=== PATIENT | male | born 1945 | race Caucasian/White ===

== ENCOUNTER 2017-02-16 05:40 | Emergency (ER) | payer OTHER ==
[~2017-02-16] VITALS: Ht 180.3 cm; Wt 80.0 kg
[2017-02-16] MEDS ORDERED: GLIP5 PO (05:47)
[2017-02-16] MEDS ORDERED: FINA5TAB41 PO (05:47)
[2017-02-16] MEDS ORDERED: METF500T4 PO (05:47)
[2017-02-16 05:53] LABS: GLUCOSE,POINT OF CARE 190 MG/DL (70-110)
[2017-02-16 06:59] LABS: APPEARANCE,URINE CLOUDY (CLEAR); BILIRUBIN,URINE NEGATIVE (NEGATIVE); GLUCOSE, URINE (UA) NEGATIVE (NEGATIVE); KETONES,URINE NEGATIVE (NEGATIVE); LEUKOCYTE ESTERASE ,URINE MODERATE (NEGATIVE); NITRATE,URINE NEGATIVE (NEGATIVE); OCCULT BLOOD,URINE LARGE (NEGATIVE); PROTEIN,URINE POS 1+ (NEGATIVE); UROBILINOGEN,URINE 0.2 mg/dL (<=1.0)
[2017-02-16 07:22] LABS: BACTERIA,URINE Few /HPF (None Seen); RBC,URINE 26-50 /HPF (0-2); SQUAMOUS EPITHELIAL CELL,UR Few /LPF (None Seen)
[2017-02-16 07:55] VITALS: BP 120/82
== END 2017-02-16 08:22 | disposition home or self-care (01) ==
LOC: EMS 05:43
DX: T83.098A Other mechanical complication of other urinary catheter, initial encounter (principal); E11.9 Type 2 diabetes mellitus without complications; N40.0 Benign prostatic hyperplasia without lower urinary tract symptoms
CPT/HCPCS: 51702; 82962; 87086; 99284